=== PATIENT | male | born 1935 | race Caucasian/White ===

== ENCOUNTER 2022-11-25 21:35 | Inpatient (IN) | payer OTHER ==
[2022-11-25 21:45] VITALS: BMI 17.6
[2022-11-25 23:47] LABS: BASO % 0.6 % (0-2.0); EOS % 0.6 % (0-4.5); HEMATOCRIT 26.9 % (35.4-49); HEMOGLOBIN 8.5 GM/dL (11.7-16.9); LYMPH % 6.5 % (8-40); MCHC 31.5 g/dl (32.0-35.9); MEAN CELL VOLUME 98.3 fl (80-96); MEAN PLT VOLUME 8.7 fl (7.5-11.1); MONO % 10.8 % (3.8-10.2); NEUT % 81.5 % (42.8-82.8); PLATELET COUNT 419 10^3/uL (134-434); RBC 2.73 M/mm3 (4.00-5.60); RDW 17.6 % (11.9-15.9); WHITE BLOOD COUNT 10.2 K/mm3 (4.0-10.0)
[2022-11-25 23:50] LABS: EPI CELLS 1 /uL (0-25.1); HYALINE CASTS 0 /uL (0-3.1); URINE APPEARANCE TURBID; URINE BACTERIA 150 /uL (0-1359); URINE BILIRUBIN NEGATIVE (NEGATIVE); URINE COLOR YELLOW; URINE GLUCOSE (UA) NEGATIVE (NEGATIVE); URINE KETONE NEGATIVE (NEGATIVE); URINE LEUK ESTERASE 3+ (NEGATIVE); URINE NITRITE NEGATIVE (NEGATIVE); URINE PROTEIN 2+ (NEGATIVE); URINE RBC 403 /uL (0-23.9); URINE UROBILINOGEN 0.2 mg/dL (0.2-1.0); URINE WBC 5789 /uL (0-25.8)
[2022-11-25 23:59] LABS: INR 1.17 (0.83-1.09); PROTHROMBIN TIME (PATIENT) 13.6 SEC (9.7-13.0)
[2022-11-26] LABS: CHLORIDE 110 mmol/L (98-107); POTASSIUM 4.9 mmol/L (3.5-5.1); SODIUM 138 mmol/L (136-145)
[2022-11-26 00:02] LABS: ACTIVATED PTT 32.1 SECONDS (25.2-36.5)
[2022-11-26 00:03] LABS: ALBUMIN 2.7 g/dl (3.4-5.0); ANION GAP 10 MMOL/L (8-16); BLOOD UREA NITROGEN 75.4 mg/dL (7-18); CALCIUM 7.5 mg/dL (8.5-10.1); CO2 19 mmol/L (21-32); GLUCOSE,RANDOM 97 mg/dL (74-106)
[2022-11-26 00:06] LABS: CREATININE 4.3 mg/dL (0.55-1.3); SGOT/AST 21 U/L (15-37); SGPT/ALT 11 U/L (13-61)
[2022-11-26 00:08] LABS: BILIRUBIN,TOTAL 0.2 mg/dL (0.2-1); TOT PROT 6.7 g/dl (6.4-8.2)
[2022-11-26 00:09] LABS: ALK PHOS 110 U/L (45-117)
[2022-11-26 00:10] LABS: MAGNESIUM 0.8 mg/dL (1.8-2.4)
[2022-11-26] MEDS ORDERED: CEFTRIAXONE 1 GM in DEXTROSE 5%-WATER - 100 ML IVPB ONE (00:13)
[2022-11-26] MEDS ORDERED: LACTATED RINGERS SOLUTION 1000 ML INFUS.BAG IV ONE (00:13)
[2022-11-26] MEDS ORDERED: MAGNESIUM SULF 50% (8.12 MEQ/2 ML-1 GM VIAL) IVPB ONE ×2 (00:13→04:23)
[2022-11-26] MEDS ORDERED: SODIUM CHLORIDE 0.9% 1000 ML INFUS.BAG IV ONE (00:37)
[2022-11-26] MEDS ORDERED: CEFTRIAXONE 1 GM/50 ML BAG ONE (00:39)
[2022-11-26] MEDS ORDERED: ACETAMINOPHEN 325 MG TABLET (FP) PO ONE (00:44)
[2022-11-26] MEDS ORDERED: PHENAZOPYRIDINE HCL 100 MG TABLET (FP) PO ONE (00:45)
[2022-11-26] MEDS ORDERED: MAGNESIUM SULFATE IN WATER 2 GM/50 ML IVPB IVPB ONE (01:07)
[2022-11-26] MEDS ORDERED: PHENAZOPYRIDINE HCL 100 MG TABLET (FP) ONE (01:17)
[2022-11-26] MEDS ORDERED: ACETAMINOPHEN 325 MG TABLET (FP) ONE (01:17)
[2022-11-26] MEDS ORDERED: morphine CARPU-JECT 4 MG/1 ML DISP.SYRIN IVPUSH ONE (02:11)
[2022-11-26] MEDS ORDERED: morphine SULFATE 4 MG/ML VIAL ONE (02:19)
[2022-11-26] MEDS ORDERED: MAGNESIUM 1GM/D5W - 1 GM/100 ML IVPB IVPB ONE (05:09)
[2022-11-26] MEDS ORDERED: ACETAMINOPHEN 325 MG TABLET (FP) PO PRN (06:00)
[2022-11-26] MEDS ORDERED: SODIUM CHLORIDE 1,000 ML IV SCH (06:00)
[2022-11-26 06:43] LABS: BASO % 0.4 % (0-2.0); EOS % 0.2 % (0-4.5); HEMATOCRIT 25.1 % (35.4-49); HEMOGLOBIN 7.9 GM/dL (11.7-16.9); LYMPH % 8.5 % (8-40); MCH 31.4 pg (25.7-33.7); MCHC 31.4 g/dl (32.0-35.9); MEAN CELL VOLUME 100.2 fl (80-96); NEUT % 78.9 % (42.8-82.8); PLATELET COUNT 404 10^3/uL (134-434); RBC 2.51 M/mm3 (4.00-5.60); RDW 17.2 % (11.9-15.9); WHITE BLOOD COUNT 9.6 K/mm3 (4.0-10.0)
[2022-11-26 06:46] LABS: POTASSIUM 4.5 mmol/L (3.5-5.1)
[2022-11-26 06:49] LABS: ALBUMIN 2.2 g/dl (3.4-5.0)
[2022-11-26 06:52] LABS: CREATININE 3.9 mg/dL (0.55-1.3)
[2022-11-26 06:54] LABS: TOT PROT 5.6 g/dl (6.4-8.2)
[2022-11-26 07:00] LABS: BILIRUBIN,TOTAL 0.3 mg/dL (0.2-1)
[2022-11-26] MEDS ORDERED: IRON SUCROSE INJECTION 200 MG in SODIUM CHLORIDE 90 ML IVPB ONE (09:22)
[2022-11-26 09:29] LABS: MAGNESIUM 1.2 mg/dL (1.8-2.4)
[2022-11-26] MEDS: PANTOPRAZOLE 40 MG TABLET PO SCH (10:23)
[2022-11-26] MEDS ORDERED: MAGNESIUM 2GM/50ML STERILE WATER IVPB IVPB ONE ×2 (10:30→14:00)
[2022-11-26] MEDS: SODIUM CHLORIDE 0.45% 1,000 ML IV SCH (14:29)
[2022-11-26] MEDS: POLYETHYLENE GLYCOL (HEALTHYLAX) 3350 17 GM PACKET PO SCH (21:10)
[2022-11-26] MEDS: ATORVASTATIN CA 10 MG TABLET (FP) PO SCH (21:10)
[2022-11-26] MEDS ORDERED: ACETAMINOPHEN 1000 MG/100 ML BAG IVPB ONE (23:07)
[2022-11-26] MEDS: MELATONIN 5 MG TABLETS PO PRN (23:30)
[2022-11-27] MEDS ORDERED: HALOPERIDOL LACTATE 5 MG/ML IM ONE (01:57)
[2022-11-27] MEDS: SODIUM CHLORIDE 0.45% 1,000 ML IV SCH ×2 (04:13→15:22)
[2022-11-27 06:41] LABS: BASO % 0.3 % (0-2.0); HEMATOCRIT 28.2 % (35.4-49); HEMOGLOBIN 8.8 GM/dL (11.7-16.9); LYMPH % 2.1 % (8-40); MCH 30.9 pg (25.7-33.7); MEAN CELL VOLUME 99.6 fl (80-96); MEAN PLT VOLUME 9.3 fl (7.5-11.1); MONO % 9.1 % (3.8-10.2); NEUT % 88.5 % (42.8-82.8); PLATELET COUNT 429 10^3/uL (134-434); RBC 2.83 M/mm3 (4.00-5.60); WHITE BLOOD COUNT 16.5 K/mm3 (4.0-10.0)
[2022-11-27 07:00] LABS: POTASSIUM 4.8 mmol/L (3.5-5.1)
[2022-11-27 07:07] LABS: ALBUMIN 2.5 g/dl (3.4-5.0)
[2022-11-27 07:08] LABS: BLOOD UREA NITROGEN 69.4 mg/dL (7-18)
[2022-11-27 07:09] LABS: CREATININE 4.2 mg/dL (0.55-1.3)
[2022-11-27 07:11] LABS: BILIRUBIN,TOTAL 0.4 mg/dL (0.2-1); TOT PROT 6.4 g/dl (6.4-8.2)
[2022-11-27 07:19] LABS: CALCIUM 8.1 mg/dL (8.5-10.1)
[2022-11-27] MEDS ORDERED: IRON SUCROSE INJECTION 200 MG in SODIUM CHLORIDE 90 ML IVPB ONE (10:00)
[2022-11-27] MEDS: POLYETHYLENE GLYCOL (HEALTHYLAX) 3350 17 GM PACKET PO SCH ×2 (10:17→21:34)
[2022-11-27] MEDS: CEFTRIAXONE 1 GM in DEXTROSE 5%-WATER - 50 ML IVPB SCH (10:26)
[2022-11-27] MEDS: PANTOPRAZOLE 40 MG TABLET PO SCH (10:26)
[2022-11-27] MEDS: METOPROLOL TARTRATE 25 MG TABLET (FP) PO SCH (14:36)
[2022-11-27] MEDS: metoPROLOL SUCCINATE 25 MG TAB.SR.24H (FP) PO SCH (15:22)
[2022-11-27] MEDS: ACETAMINOPHEN 1000 MG/100 ML BAG IVPB PRN ×2 (17:14→23:09)
[2022-11-27] MEDS: MELATONIN 5 MG TABLETS PO PRN (21:34)
[2022-11-27] MEDS: ATORVASTATIN CA 10 MG TABLET (FP) PO SCH (21:34)
[2022-11-27] MEDS: QUEtiapine FUMARATE 25 MG TABLET PO SCH (21:34)
[2022-11-28 08:01] LABS: HEMATOCRIT 27.5 % (35.4-49); HEMOGLOBIN 8.4 GM/dL (11.7-16.9); MCH 30.8 pg (25.7-33.7); MCHC 30.4 g/dl (32.0-35.9); MEAN CELL VOLUME 101.1 fl (80-96); MEAN PLT VOLUME 9.9 fl (7.5-11.1); PLATELET COUNT 414 10^3/uL (134-434); RBC 2.72 M/mm3 (4.00-5.60); RDW 17.1 % (11.9-15.9); WHITE BLOOD COUNT 21.1 K/mm3 (4.0-10.0)
[2022-11-28 08:03] LABS: POTASSIUM 4.7 mmol/L (3.5-5.1)
[2022-11-28 08:09] LABS: ALBUMIN 2.1 g/dl (3.4-5.0); CALCIUM 8.3 mg/dL (8.5-10.1)
[2022-11-28 08:10] LABS: BLOOD UREA NITROGEN 70.1 mg/dL (7-18)
[2022-11-28 08:12] LABS: CREATININE 4.2 mg/dL (0.55-1.3)
[2022-11-28 08:14] LABS: BILIRUBIN,TOTAL 0.2 mg/dL (0.2-1); TOT PROT 5.6 g/dl (6.4-8.2)
[2022-11-28 08:41] LABS: ANISOCYTOSIS 1+; MACROCYTOSIS 1+
[2022-11-28] MEDS ORDERED: AMMONIUM LACTATE 12% LOTION 225 GM BOTTLE TP PRN (08:54)
[2022-11-28] MEDS ORDERED: IRON SUCROSE INJECTION 200 MG in SODIUM CHLORIDE 90 ML IVPB ONE (10:00)
[2022-11-28] MEDS: PANTOPRAZOLE 40 MG TABLET PO SCH (10:30)
[2022-11-28] MEDS: metoPROLOL SUCCINATE 25 MG TAB.SR.24H (FP) PO SCH (10:30)
[2022-11-28] MEDS: CEFTRIAXONE 1 GM in DEXTROSE 5%-WATER - 50 ML IVPB SCH (10:30)
[2022-11-28] MEDS: POLYETHYLENE GLYCOL (HEALTHYLAX) 3350 17 GM PACKET PO SCH ×2 (10:31→21:16)
[2022-11-28] MEDS: SODIUM CHLORIDE 0.45% 1,000 ML IV SCH (19:16)
[2022-11-28] MEDS: QUEtiapine FUMARATE 25 MG TABLET PO SCH (21:01)
[2022-11-28] MEDS: ATORVASTATIN CA 10 MG TABLET (FP) PO SCH (21:01)
[2022-11-29] MEDS ORDERED: ALPRAZolam 0.25 MG TABLET PO ONE (00:56)
[2022-11-29] MEDS: SODIUM CHLORIDE 0.45% 1,000 ML IV SCH ×3 (07:34→22:57)
[2022-11-29 10:02] LABS: HEMATOCRIT 26.7 % (35.4-49); HEMOGLOBIN 8.2 GM/dL (11.7-16.9); MCH 30.7 pg (25.7-33.7); MCHC 30.5 g/dl (32.0-35.9); MEAN CELL VOLUME 100.6 fl (80-96); MEAN PLT VOLUME 9.8 fl (7.5-11.1); PLATELET COUNT 374 10^3/uL (134-434); RBC 2.66 M/mm3 (4.00-5.60); RDW 17.4 % (11.9-15.9); WHITE BLOOD COUNT 24.6 K/mm3 (4.0-10.0)
[2022-11-29 10:24] LABS: POTASSIUM 4.2 mmol/L (3.5-5.1)
[2022-11-29 10:26] LABS: ALBUMIN 1.9 g/dl (3.4-5.0); BLOOD UREA NITROGEN 81.6 mg/dL (7-18); CALCIUM 8.2 mg/dL (8.5-10.1)
[2022-11-29 10:29] LABS: CREATININE 4.5 mg/dL (0.55-1.3)
[2022-11-29 10:31] LABS: BILIRUBIN,TOTAL 0.2 mg/dL (0.2-1); TOT PROT 5.2 g/dl (6.4-8.2)
[2022-11-29] MEDS: PANTOPRAZOLE 40 MG TABLET PO SCH (10:43)
[2022-11-29] MEDS: CEFTRIAXONE 1 GM in DEXTROSE 5%-WATER - 50 ML IVPB SCH (10:43)
[2022-11-29] MEDS: metoPROLOL SUCCINATE 25 MG TAB.SR.24H (FP) PO SCH (10:43)
[2022-11-29 11:05] LABS: ANISOCYTOSIS 2+; MACROCYTOSIS 2+
[2022-11-29] MEDS: POLYETHYLENE GLYCOL (HEALTHYLAX) 3350 17 GM PACKET PO SCH ×2 (11:50→21:37)
[2022-11-29] MEDS: ATORVASTATIN CA 10 MG TABLET (FP) PO SCH (23:27)
[2022-11-29] MEDS: QUEtiapine FUMARATE 25 MG TABLET PO SCH (23:27)
[2022-11-30] MEDS: PIPERACILLIN/TAZOB 2.25 GM 2.25 GM in DEXTROSE 5%-WATER - 50 ML IVPB SCH ×3 (01:16→18:38)
[2022-11-30 03:40] LABS: EPI CELLS 3 /uL (0-25.1); HYALINE CASTS 1 /uL (0-3.1); PH,URINE 5.5 (5.0-8.0); URINE APPEARANCE CLOUDY; URINE BACTERIA 16 /uL (0-1359); URINE BILIRUBIN NEGATIVE (NEGATIVE); URINE COLOR DK YELLOW; URINE GLUCOSE (UA) NEGATIVE (NEGATIVE); URINE KETONE NEGATIVE (NEGATIVE); URINE LEUK ESTERASE 2+ (NEGATIVE); URINE NITRITE NEGATIVE (NEGATIVE); URINE PROTEIN 3+ (NEGATIVE); URINE RBC 5181 /uL (0-23.9); URINE WBC 663 /uL (0-25.8)
[2022-11-30 07:25] LABS: POTASSIUM 3.7 mmol/L (3.5-5.1)
[2022-11-30 07:30] LABS: CALCIUM 7.4 mg/dL (8.5-10.1)
[2022-11-30 07:31] LABS: BLOOD UREA NITROGEN 78.7 mg/dL (7-18)
[2022-11-30 07:34] LABS: CREATININE 4.5 mg/dL (0.55-1.3)
[2022-11-30 07:36] LABS: BILIRUBIN,TOTAL 0.3 mg/dL (0.2-1); TOT PROT 5.5 g/dl (6.4-8.2)
[2022-11-30 07:57] LABS: HEMATOCRIT 26.3 % (35.4-49); HEMOGLOBIN 8.3 GM/dL (11.7-16.9); MCH 30.5 pg (25.7-33.7); MCHC 31.3 g/dl (32.0-35.9); MEAN CELL VOLUME 97.5 fl (80-96); MEAN PLT VOLUME 9.1 fl (7.5-11.1); PLATELET COUNT 398 10^3/uL (134-434); RDW 17.5 % (11.9-15.9)
[2022-11-30 08:58] LABS: ANISOCYTOSIS 1+; MACROCYTOSIS 0; OVALOCYTE 1+; TEAR DROP CELLS 1+
[2022-11-30] MEDS: PANTOPRAZOLE 40 MG TABLET PO SCH (10:47)
[2022-11-30] MEDS: POLYETHYLENE GLYCOL (HEALTHYLAX) 3350 17 GM PACKET PO SCH ×2 (10:47→21:50)
[2022-11-30] MEDS: metoPROLOL SUCCINATE 25 MG TAB.SR.24H (FP) PO SCH (10:47)
[2022-11-30] MEDS: SODIUM CHLORIDE 0.45% 1,000 ML IV SCH (15:47)
[2022-11-30] MEDS: QUEtiapine FUMARATE 25 MG TABLET PO SCH (21:50)
[2022-11-30] MEDS: ATORVASTATIN CA 10 MG TABLET (FP) PO SCH (21:50)
[2022-12-01] MEDS: PIPERACILLIN/TAZOB 2.25 GM 2.25 GM in DEXTROSE 5%-WATER - 50 ML IVPB SCH ×3 (01:44→17:12)
[2022-12-01 08:02] LABS: BASO % 0.2 % (0-2.0); EOS % 0.3 % (0-4.5); HEMOGLOBIN 7.7 GM/dL (11.7-16.9); LYMPH % 1.7 % (8-40); MCH 30.8 pg (25.7-33.7); MEAN CELL VOLUME 99.3 fl (80-96); MEAN PLT VOLUME 9.6 fl (7.5-11.1); NEUT % 89.8 % (42.8-82.8); PLATELET COUNT 386 10^3/uL (134-434); RBC 2.52 M/mm3 (4.00-5.60); RDW 17.6 % (11.9-15.9); WHITE BLOOD COUNT 19.3 K/mm3 (4.0-10.0)
[2022-12-01 08:18] LABS: POTASSIUM 3.8 mmol/L (3.5-5.1)
[2022-12-01 08:22] LABS: ALBUMIN 1.9 g/dl (3.4-5.0); BLOOD UREA NITROGEN 83.3 mg/dL (7-18)
[2022-12-01 08:25] LABS: CREATININE 4.8 mg/dL (0.55-1.3)
[2022-12-01 08:26] LABS: BILIRUBIN,TOTAL 0.4 mg/dL (0.2-1)
[2022-12-01 08:27] LABS: TOT PROT 5.2 g/dl (6.4-8.2)
[2022-12-01] MEDS: PANTOPRAZOLE 40 MG TABLET PO SCH (09:39)
[2022-12-01] MEDS: metoPROLOL SUCCINATE 25 MG TAB.SR.24H (FP) PO SCH (09:39)
[2022-12-01] MEDS: POLYETHYLENE GLYCOL (HEALTHYLAX) 3350 17 GM PACKET PO SCH ×2 (09:39→21:45)
[2022-12-01] MEDS ORDERED: SODIUM BICARBONATE 8.4% 50 MEQ/50 ML VIAL IVPUSH ONE (11:34)
[2022-12-01] MEDS ORDERED: POTASSIUM CHLORIDE ORAL LIQUID 20 MEQ/15 ML PO ONE (11:35)
[2022-12-01] MEDS ORDERED: DEXTROSE 5%-WATER - 950 ML with SODIUM BICARBONATE 8.4% - 150 MEQ IV SCH (11:45)
[2022-12-01] MEDS: SODIUM BICARBONATE 8.4% - 150 MEQ in DEXTROSE 5%-WATER - 950 ML IV SCH (15:41)
[2022-12-01] MEDS: ATORVASTATIN CA 10 MG TABLET (FP) PO SCH ×2 (21:46→21:50)
[2022-12-01] MEDS: QUEtiapine FUMARATE 25 MG TABLET PO SCH ×2 (21:46→21:51)
[2022-12-02] MEDS: PIPERACILLIN/TAZOB 2.25 GM 2.25 GM in DEXTROSE 5%-WATER - 50 ML IVPB SCH ×3 (02:50→18:06)
[2022-12-02] MEDS: SODIUM BICARBONATE 8.4% - 150 MEQ in DEXTROSE 5%-WATER - 950 ML IV SCH ×2 (03:12→18:05)
[2022-12-02 07:55] LABS: HEMATOCRIT 27.4 % (35.4-49); HEMOGLOBIN 8.6 GM/dL (11.7-16.9); MCHC 31.4 g/dl (32.0-35.9); MEAN CELL VOLUME 98.7 fl (80-96); MEAN PLT VOLUME 9.6 fl (7.5-11.1); PLATELET COUNT 422 10^3/uL (134-434); RBC 2.78 M/mm3 (4.00-5.60); RDW 17.9 % (11.9-15.9); WHITE BLOOD COUNT 18.7 K/mm3 (4.0-10.0)
[2022-12-02 08:17] LABS: CALCIUM 8.3 mg/dL (8.5-10.1)
[2022-12-02 08:18] LABS: BLOOD UREA NITROGEN 81.6 mg/dL (7-18)
[2022-12-02 08:20] LABS: CREATININE 4.9 mg/dL (0.55-1.3)
[2022-12-02 08:22] LABS: TOT PROT 5.8 g/dl (6.4-8.2)
[2022-12-02 08:26] LABS: BILIRUBIN,TOTAL 0.4 mg/dL (0.2-1)
[2022-12-02 08:37] LABS: ANISOCYTOSIS 0; HELMET CELLS 0; HOWELL-JOLLY BODIES 0; MACROCYTOSIS 0; OVALOCYTE 0; ROULEAU 0; SICKELED CELLS 0; TARGET CELLS 0; TEAR DROP CELLS 0; TOXIC GRANULATION 0
[2022-12-02] MEDS: PANTOPRAZOLE 40 MG TABLET PO SCH (09:48)
[2022-12-02] MEDS: metoPROLOL SUCCINATE 25 MG TAB.SR.24H (FP) PO SCH (09:48)
[2022-12-02] MEDS: POLYETHYLENE GLYCOL (HEALTHYLAX) 3350 17 GM PACKET PO SCH ×3 (09:49→22:02)
[2022-12-02] MEDS: KCL 10 MEQ IVPB 10 MEQ/100 ML INFUS.BAG IVPB SCH ×4 (09:55→19:42)
[2022-12-02] MEDS ORDERED: POTASSIUM CHLORIDE ORAL LIQUID 20 MEQ/15 ML PO ONE ×2 (15:06→16:09)
[2022-12-02] MEDS ORDERED: KCL 10 MEQ IVPB 10 MEQ/100 ML INFUS.BAG IVPB SCH (15:15)
[2022-12-02] MEDS ORDERED: AMMONIUM LACTATE 12% LOTION 225 GM BOTTLE TP PRN (16:09)
[2022-12-02] MEDS ORDERED: MELATONIN 5 MG TABLETS PO PRN (16:09)
[2022-12-02] MEDS ORDERED: LACTATED RINGERS SOLUTION 1,000 ML IV SCH (16:15)
[2022-12-02] MEDS ORDERED: SODIUM BICARBONATE 8.4% - 75 MEQ in DEXTROSE 5%-WATER - 950 ML IV SCH (17:00)
[2022-12-02] MEDS: SODIUM BICARBONATE 8.4% - 75 MEQ in DEXTROSE 5%-WATER - 950 ML IV SCH (18:05)
[2022-12-02] MEDS: POTASSIUM CHLORIDE ORAL LIQUID 20 MEQ/15 ML PO ONE ×2 (18:37→18:44)
[2022-12-02] MEDS: QUEtiapine FUMARATE 25 MG TABLET PO SCH (22:02)
[2022-12-02] MEDS: ATORVASTATIN CA 10 MG TABLET (FP) PO SCH (22:02)
[2022-12-03] MEDS: PIPERACILLIN/TAZOB 2.25 GM 2.25 GM in DEXTROSE 5%-WATER - 50 ML IVPB SCH ×3 (01:52→18:47)
[2022-12-03 09:32] LABS: BASO % 0.1 % (0-2.0); EOS % 1.2 % (0-4.5); HEMATOCRIT 24.4 % (35.4-49); HEMOGLOBIN 7.7 GM/dL (11.7-16.9); LYMPH % 3.4 % (8-40); MCH 31.2 pg (25.7-33.7); MCHC 31.6 g/dl (32.0-35.9); MEAN CELL VOLUME 98.7 fl (80-96); MEAN PLT VOLUME 9.6 fl (7.5-11.1); MONO % 9.6 % (3.8-10.2); NEUT % 85.7 % (42.8-82.8); PLATELET COUNT 386 10^3/uL (134-434); RBC 2.47 M/mm3 (4.00-5.60); RDW 17.5 % (11.9-15.9); WHITE BLOOD COUNT 15.7 K/mm3 (4.0-10.0)
[2022-12-03 09:47] LABS: ALBUMIN 1.7 g/dl (3.4-5.0); BLOOD UREA NITROGEN 77.4 mg/dL (7-18); MAGNESIUM 1.6 mg/dL (1.8-2.4)
[2022-12-03 09:48] LABS: CREATININE 4.5 mg/dL (0.55-1.3)
[2022-12-03 09:50] LABS: BILIRUBIN,TOTAL 0.2 mg/dL (0.2-1)
[2022-12-03] MEDS ORDERED: POTASSIUM CHLORIDE ORAL LIQUID 20 MEQ/15 ML PO ONE (10:35)
[2022-12-03] MEDS: POLYETHYLENE GLYCOL (HEALTHYLAX) 3350 17 GM PACKET PO SCH ×2 (11:18→22:14)
[2022-12-03] MEDS: SODIUM BICARBONATE 8.4% - 75 MEQ in DEXTROSE 5%-WATER - 950 ML IV SCH (11:47)
[2022-12-03] MEDS: PANTOPRAZOLE 40 MG TABLET PO SCH ×2 (11:48→12:01)
[2022-12-03] MEDS: metoPROLOL SUCCINATE 25 MG TAB.SR.24H (FP) PO SCH ×2 (11:48→12:03)
[2022-12-03] MEDS ORDERED: DEXTROSE 50%-WATER - 25 GM/50 ML VIAL IVPUSH PRN (13:10)
[2022-12-03] MEDS ORDERED: MAGNESIUM SULF 50% (8.12 MEQ/2 ML-1 GM VIAL) IVPB ONE (13:10)
[2022-12-03] MEDS: POTASSIUM CHLORIDE 10 MEQ in SODIUM CHLORIDE 0.45% 1,000 ML IVPB SCH (14:01)
[2022-12-03] MEDS: KCL 10 MEQ IVPB 10 MEQ/100 ML INFUS.BAG IVPB SCH ×4 (14:20→22:21)
[2022-12-03] MEDS ORDERED: FENTANYL CITRATE/PF 50 MCG/ML VIAL IVPUSH ONE (16:00)
[2022-12-03] MEDS ORDERED: SODIUM CHLORIDE 500 ML IV ONE (16:00)
[2022-12-03] MEDS ORDERED: FENTANYL CITRATE/PF 50 MCG/ML VIAL ONE ×2 (16:05→16:17)
[2022-12-03] MEDS: ATORVASTATIN CA 10 MG TABLET (FP) PO SCH (22:13)
[2022-12-03] MEDS: QUEtiapine FUMARATE 25 MG TABLET PO SCH (22:14)
[2022-12-04] MEDS: PIPERACILLIN/TAZOB 2.25 GM 2.25 GM in DEXTROSE 5%-WATER - 50 ML IVPB SCH ×3 (02:03→17:41)
[2022-12-04] MEDS: POTASSIUM CHLORIDE 10 MEQ in SODIUM CHLORIDE 0.45% 1,000 ML IVPB SCH ×2 (02:53→17:40)
[2022-12-04 07:54] LABS: BASO % 0.3 % (0-2.0); EOS % 0.5 % (0-4.5); HEMATOCRIT 26.4 % (35.4-49); HEMOGLOBIN 8.4 GM/dL (11.7-16.9); LYMPH % 4.1 % (8-40); MCH 31.6 pg (25.7-33.7); MCHC 31.8 g/dl (32.0-35.9); MEAN CELL VOLUME 99.3 fl (80-96); MEAN PLT VOLUME 10.1 fl (7.5-11.1); MONO % 7.5 % (3.8-10.2); NEUT % 87.6 % (42.8-82.8); PLATELET COUNT 328 10^3/uL (134-434); RBC 2.66 M/mm3 (4.00-5.60); RDW 18.2 % (11.9-15.9); WHITE BLOOD COUNT 14.8 K/mm3 (4.0-10.0)
[2022-12-04 08:10] LABS: POTASSIUM 3.5 mmol/L (3.5-5.1)
[2022-12-04 08:14] LABS: ALBUMIN 1.8 g/dl (3.4-5.0); CALCIUM 7.9 mg/dL (8.5-10.1)
[2022-12-04 08:15] LABS: BLOOD UREA NITROGEN 74.4 mg/dL (7-18)
[2022-12-04 08:17] LABS: CREATININE 4.2 mg/dL (0.55-1.3)
[2022-12-04 08:18] LABS: TOT PROT 5.4 g/dl (6.4-8.2)
[2022-12-04 08:19] LABS: BILIRUBIN,TOTAL 0.4 mg/dL (0.2-1)
[2022-12-04] MEDS: metoPROLOL SUCCINATE 25 MG TAB.SR.24H (FP) PO SCH (09:36)
[2022-12-04] MEDS: PANTOPRAZOLE 40 MG TABLET PO SCH (12:35)
[2022-12-04] MEDS: POLYETHYLENE GLYCOL (HEALTHYLAX) 3350 17 GM PACKET PO SCH ×2 (12:35→22:38)
[2022-12-04] MEDS: KCL 10 MEQ IVPB 10 MEQ/100 ML INFUS.BAG IVPB SCH (14:29)
[2022-12-04] MEDS: QUEtiapine FUMARATE 25 MG TABLET PO SCH (22:38)
[2022-12-04] MEDS: ATORVASTATIN CA 10 MG TABLET (FP) PO SCH (22:38)
[2022-12-05] MEDS: PIPERACILLIN/TAZOB 2.25 GM 2.25 GM in DEXTROSE 5%-WATER - 50 ML IVPB SCH ×3 (01:04→17:38)
[2022-12-05] MEDS: POTASSIUM CHLORIDE 10 MEQ in SODIUM CHLORIDE 0.45% 1,000 ML IVPB SCH ×2 (05:01→17:38)
[2022-12-05] MEDS: POLYETHYLENE GLYCOL (HEALTHYLAX) 3350 17 GM PACKET PO SCH ×2 (09:01→21:37)
[2022-12-05] MEDS: metoPROLOL SUCCINATE 25 MG TAB.SR.24H (FP) PO SCH (09:01)
[2022-12-05] MEDS: PANTOPRAZOLE 40 MG TABLET PO SCH (09:01)
[2022-12-05] MEDS: ATORVASTATIN CA 10 MG TABLET (FP) PO SCH (21:37)
[2022-12-05] MEDS: QUEtiapine FUMARATE 25 MG TABLET PO SCH (21:37)
[2022-12-06] MEDS: PIPERACILLIN/TAZOB 2.25 GM 2.25 GM in DEXTROSE 5%-WATER - 50 ML IVPB SCH ×5 (01:45→21:58)
[2022-12-06] MEDS: POTASSIUM CHLORIDE 10 MEQ in SODIUM CHLORIDE 0.45% 1,000 ML IVPB SCH ×2 (07:23→20:50)
[2022-12-06 09:32] LABS: BASO % 0.1 % (0-2.0); EOS % 0.7 % (0-4.5); HEMATOCRIT 20.2 % (35.4-49); LYMPH % 5.5 % (8-40); MCH 31.6 pg (25.7-33.7); MCHC 31.9 g/dl (32.0-35.9); MEAN CELL VOLUME 99.2 fl (80-96); MEAN PLT VOLUME 9.7 fl (7.5-11.1); MONO % 8.8 % (3.8-10.2); NEUT % 84.9 % (42.8-82.8); PLATELET COUNT 344 10^3/uL (134-434); RBC 2.04 M/mm3 (4.00-5.60); RDW 17.9 % (11.9-15.9); WHITE BLOOD COUNT 9.5 K/mm3 (4.0-10.0)
[2022-12-06 09:37] LABS: HEMOGLOBIN 6.5 GM/dL (11.7-16.9)
[2022-12-06 09:53] LABS: CALCIUM 8.1 mg/dL (8.5-10.1)
[2022-12-06 09:54] LABS: ALBUMIN 1.7 g/dl (3.4-5.0); BLOOD UREA NITROGEN 64.8 mg/dL (7-18); MAGNESIUM 1.7 mg/dL (1.8-2.4)
[2022-12-06 09:56] LABS: CREATININE 3.7 mg/dL (0.55-1.3)
[2022-12-06 09:58] LABS: BILIRUBIN,TOTAL 0.6 mg/dL (0.2-1)
[2022-12-06] MEDS: metoPROLOL SUCCINATE 25 MG TAB.SR.24H (FP) PO SCH (10:18)
[2022-12-06] MEDS: POLYETHYLENE GLYCOL (HEALTHYLAX) 3350 17 GM PACKET PO SCH ×3 (10:19→21:56)
[2022-12-06] MEDS: PANTOPRAZOLE 40 MG TABLET PO SCH (10:19)
[2022-12-06] MEDS: KCL 10 MEQ IVPB 10 MEQ/100 ML INFUS.BAG IVPB SCH ×3 (14:24→19:11)
[2022-12-06] MEDS: POTASSIUM CHLORIDE ORAL LIQUID 20 MEQ/15 ML PO ONE ×2 (14:24→14:30)
[2022-12-06] MEDS ORDERED: MAGNESIUM 2GM/50ML STERILE WATER IVPB IVPB ONE (14:30)
[2022-12-06] MEDS: QUEtiapine FUMARATE 25 MG TABLET PO SCH (22:03)
[2022-12-06] MEDS: ATORVASTATIN CA 10 MG TABLET (FP) PO SCH (22:03)
[2022-12-07] MEDS: POTASSIUM CHLORIDE 10 MEQ in SODIUM CHLORIDE 0.45% 1,000 ML IVPB SCH ×3 (01:01→21:12)
[2022-12-07] MEDS: PIPERACILLIN/TAZOB 2.25 GM 2.25 GM in DEXTROSE 5%-WATER - 50 ML IVPB SCH ×3 (01:03→17:37)
[2022-12-07] MEDS: POLYETHYLENE GLYCOL (HEALTHYLAX) 3350 17 GM PACKET PO SCH ×2 (09:07→22:10)
[2022-12-07 09:22] LABS: HEMATOCRIT 29.3 % (35.4-49); HEMOGLOBIN 9.7 GM/dL (11.7-16.9); MCH 32.4 pg (25.7-33.7); MCHC 33.2 g/dl (32.0-35.9); MEAN CELL VOLUME 97.5 fl (80-96); MEAN PLT VOLUME 9.5 fl (7.5-11.1); PLATELET COUNT 331 10^3/uL (134-434); RDW 16.9 % (11.9-15.9); WHITE BLOOD COUNT 11.3 K/mm3 (4.0-10.0)
[2022-12-07 09:43] LABS: POTASSIUM 3.1 mmol/L (3.5-5.1)
[2022-12-07 09:45] LABS: ALBUMIN 1.9 g/dl (3.4-5.0); BLOOD UREA NITROGEN 60.8 mg/dL (7-18); CALCIUM 8.1 mg/dL (8.5-10.1)
[2022-12-07 09:48] LABS: CREATININE 3.4 mg/dL (0.55-1.3)
[2022-12-07 09:51] LABS: BILIRUBIN,TOTAL 1.2 mg/dL (0.2-1); TOT PROT 5.6 g/dl (6.4-8.2)
[2022-12-07] MEDS: PANTOPRAZOLE 40 MG TABLET PO SCH (09:57)
[2022-12-07] MEDS: metoPROLOL SUCCINATE 25 MG TAB.SR.24H (FP) PO SCH (09:57)
[2022-12-07] MEDS ORDERED: MAGNESIUM OXIDE 400 MG TABLET (FP) PO ONE (10:30)
[2022-12-07] MEDS ORDERED: POTASSIUM CHLORIDE ORAL LIQUID 20 MEQ/15 ML PO ONE (10:30)
[2022-12-07 10:40] LABS: ANISOCYTOSIS 1+; MACROCYTOSIS 1+
[2022-12-07] MEDS: KCL 10 MEQ IVPB 10 MEQ/100 ML INFUS.BAG IVPB SCH ×3 (10:49→13:15)
[2022-12-07] MEDS: QUEtiapine FUMARATE 25 MG TABLET PO SCH (22:11)
[2022-12-07] MEDS: ATORVASTATIN CA 10 MG TABLET (FP) PO SCH (22:11)
[2022-12-08] MEDS: PIPERACILLIN/TAZOB 2.25 GM 2.25 GM in DEXTROSE 5%-WATER - 50 ML IVPB SCH ×2 (01:13→10:35)
[2022-12-08 08:43] LABS: BASO % 0.2 % (0-2.0); EOS % 1.1 % (0-4.5); HEMOGLOBIN 9.3 GM/dL (11.7-16.9); LYMPH % 3.7 % (8-40); MCHC 33.4 g/dl (32.0-35.9); MEAN CELL VOLUME 95.9 fl (80-96); MEAN PLT VOLUME 9.1 fl (7.5-11.1); MONO % 8.5 % (3.8-10.2); NEUT % 86.5 % (42.8-82.8); PLATELET COUNT 306 10^3/uL (134-434); RBC 2.92 M/mm3 (4.00-5.60); WHITE BLOOD COUNT 10.8 K/mm3 (4.0-10.0)
[2022-12-08 09:07] LABS: POTASSIUM 3.7 mmol/L (3.5-5.1)
[2022-12-08 09:20] LABS: ALBUMIN 1.8 g/dl (3.4-5.0); BLOOD UREA NITROGEN 53.4 mg/dL (7-18); MAGNESIUM 1.5 mg/dL (1.8-2.4)
[2022-12-08 09:28] LABS: CREATININE 2.9 mg/dL (0.55-1.3)
[2022-12-08 09:29] LABS: BILIRUBIN,TOTAL 0.4 mg/dL (0.2-1); TOT PROT 5.2 g/dl (6.4-8.2)
[2022-12-08] MEDS: metoPROLOL SUCCINATE 25 MG TAB.SR.24H (FP) PO SCH ×2 (10:36→10:51)
[2022-12-08] MEDS: PANTOPRAZOLE 40 MG TABLET PO SCH (10:36)
[2022-12-08] MEDS: POLYETHYLENE GLYCOL (HEALTHYLAX) 3350 17 GM PACKET PO SCH ×2 (10:37→21:50)
[2022-12-08] MEDS ORDERED: MAGNESIUM 2GM/50ML STERILE WATER IVPB IVPB ONE (11:00)
[2022-12-08] MEDS: POTASSIUM CHLORIDE 10 MEQ in SODIUM CHLORIDE 0.45% 1,000 ML IVPB SCH (11:01)
[2022-12-08] MEDS: AMOX TR/POT CLAV 250MG/125MG TABLETS PO SCH (16:31)
[2022-12-08] MEDS: QUEtiapine FUMARATE 25 MG TABLET PO SCH (21:46)
[2022-12-08] MEDS: ATORVASTATIN CA 10 MG TABLET (FP) PO SCH (21:46)
[2022-12-09] MEDS: POTASSIUM CHLORIDE 10 MEQ in SODIUM CHLORIDE 0.45% 1,000 ML IVPB SCH (01:45)
[2022-12-09 09:48] LABS: BASO % 0.3 % (0-2.0); EOS % 1.2 % (0-4.5); HEMATOCRIT 28.6 % (35.4-49); HEMOGLOBIN 9.1 GM/dL (11.7-16.9); LYMPH % 6.3 % (8-40); MCH 31.2 pg (25.7-33.7); MCHC 31.8 g/dl (32.0-35.9); MEAN CELL VOLUME 98.2 fl (80-96); MEAN PLT VOLUME 9.3 fl (7.5-11.1); MONO % 10.2 % (3.8-10.2); PLATELET COUNT 322 10^3/uL (134-434); RBC 2.91 M/mm3 (4.00-5.60); RDW 17.5 % (11.9-15.9); WHITE BLOOD COUNT 9.7 K/mm3 (4.0-10.0)
[2022-12-09 10:14] LABS: POTASSIUM 3.4 mmol/L (3.5-5.1)
[2022-12-09 10:17] LABS: CALCIUM 7.9 mg/dL (8.5-10.1)
[2022-12-09 10:18] LABS: ALBUMIN 1.8 g/dl (3.4-5.0); BLOOD UREA NITROGEN 45.9 mg/dL (7-18)
[2022-12-09 10:21] LABS: CREATININE 2.5 mg/dL (0.55-1.3)
[2022-12-09 10:23] LABS: BILIRUBIN,TOTAL 0.2 mg/dL (0.2-1); TOT PROT 5.1 g/dl (6.4-8.2)
[2022-12-09] MEDS: PANTOPRAZOLE 40 MG TABLET PO SCH (11:15)
[2022-12-09] MEDS: metoPROLOL SUCCINATE 25 MG TAB.SR.24H (FP) PO SCH (11:15)
[2022-12-09] MEDS: POLYETHYLENE GLYCOL (HEALTHYLAX) 3350 17 GM PACKET PO SCH ×2 (11:15→21:19)
[2022-12-09] MEDS: AMOX TR/POT CLAV 250MG/125MG TABLETS PO SCH ×2 (13:00→17:23)
[2022-12-09] MEDS ORDERED: POTASSIUM CHLORIDE ORAL LIQUID 20 MEQ/15 ML PO ONE (13:11)
[2022-12-09] MEDS ORDERED: MAGNESIUM OXIDE 400 MG TABLET (FP) PO ONE (15:07)
[2022-12-09] MEDS: KCL 10 MEQ IVPB 10 MEQ/100 ML INFUS.BAG IVPB SCH ×2 (15:09→15:36)
[2022-12-09] MEDS: QUEtiapine FUMARATE 25 MG TABLET PO SCH (21:17)
[2022-12-09] MEDS: ATORVASTATIN CA 10 MG TABLET (FP) PO SCH (21:17)
[2022-12-10 00:49] VITALS: RESP 16
[2022-12-10] MEDS: POLYETHYLENE GLYCOL (HEALTHYLAX) 3350 17 GM PACKET PO SCH (10:51)
[2022-12-10] MEDS: PANTOPRAZOLE 40 MG TABLET PO SCH (10:51)
[2022-12-10] MEDS: AMOX TR/POT CLAV 250MG/125MG TABLETS PO SCH ×2 (11:31→17:35)
[2022-12-10] MEDS: metoPROLOL SUCCINATE 25 MG TAB.SR.24H (FP) PO SCH (11:32)
[2022-12-10 16:00] LABS: BASO % 0.3 % (0-2.0); EOS % 0.8 % (0-4.5); HEMATOCRIT 29.2 % (35.4-49); HEMOGLOBIN 9.4 GM/dL (11.7-16.9); LYMPH % 6.8 % (8-40); MCH 30.9 pg (25.7-33.7); MCHC 32.1 g/dl (32.0-35.9); MEAN CELL VOLUME 96.3 fl (80-96); MONO % 9.5 % (3.8-10.2); NEUT % 82.6 % (42.8-82.8); PLATELET COUNT 351 10^3/uL (134-434); RBC 3.03 M/mm3 (4.00-5.60); RDW 17.9 % (11.9-15.9)
[2022-12-10 16:28] LABS: CALCIUM 7.8 mg/dL (8.5-10.1)
[2022-12-10 16:29] LABS: BLOOD UREA NITROGEN 35.8 mg/dL (7-18)
[2022-12-10 16:32] LABS: CREATININE 1.9 mg/dL (0.55-1.3)
[2022-12-10 16:34] LABS: BILIRUBIN,TOTAL 0.2 mg/dL (0.2-1); TOT PROT 5.5 g/dl (6.4-8.2)
[2022-12-10 20:07] VITALS: BP 131/69; PULSE 73; TEMP 98.5
== END 2022-12-10 20:00 | DRG 682 ==
LOC: JER 21:35 → JERBED 23:41 → J4S 11-26 06:52
PROVIDERS: ADMIT Internal Medicine; ATTEND Family Medicine
PROC: 0HBRXZZ Excision of Toe Nail, External Approach (ICD-10-PCS; principal; 2022-11-27)
PROC: 0HBRXZZ Excision of Toe Nail, External Approach (ICD-10-PCS; 2022-11-27)
PROC: 0HBRXZZ Excision of Toe Nail, External Approach (ICD-10-PCS; 2022-11-27)
PROC: 0HBRXZZ Excision of Toe Nail, External Approach (ICD-10-PCS; 2022-11-27)
PROC: 0HBRXZZ Excision of Toe Nail, External Approach (ICD-10-PCS; 2022-11-27)
PROC: 0HBRXZZ Excision of Toe Nail, External Approach (ICD-10-PCS; 2022-11-27)
PROC: 0HBRXZZ Excision of Toe Nail, External Approach (ICD-10-PCS; 2022-11-27)
PROC: 0HBRXZZ Excision of Toe Nail, External Approach (ICD-10-PCS; 2022-11-27)
PROC: 0HBRXZZ Excision of Toe Nail, External Approach (ICD-10-PCS; 2022-11-27)
PROC: 0HBRXZZ Excision of Toe Nail, External Approach (ICD-10-PCS; 2022-11-27)
PROC: 0TJB8ZZ Inspection of Bladder, Via Natural or Artificial Opening Endoscopic (ICD-10-PCS; 2022-12-02)
PROC: 0T9030Z Drainage of Right Kidney with Drainage Device, Percutaneous Approach (ICD-10-PCS; 2022-12-03)
PROC: 0T9430Z Drainage of Left Kidney Pelvis with Drainage Device, Percutaneous Approach (ICD-10-PCS; 2022-12-03)
PROC: BT01ZZZ Plain Radiography of Right Kidney (ICD-10-PCS; 2022-12-03)
PROC: 0T788ZZ Dilation of Bilateral Ureters, Via Natural or Artificial Opening Endoscopic (ICD-10-PCS; 2022-12-03)
DX: N17.9 Acute kidney failure, unspecified (principal); E43 Unspecified severe protein-calorie malnutrition; G93.41 Metabolic encephalopathy; J18.9 Pneumonia, unspecified organism; R64 Cachexia; Z68.1 Body mass index [BMI] 19.9 or less, adult; E87.29 Other acidosis; N13.6 Pyonephrosis; D72.829 Elevated white blood cell count, unspecified; E83.42 Hypomagnesemia; D63.1 Anemia in chronic kidney disease; E86.0 Dehydration; D51.9 Vitamin B12 deficiency anemia, unspecified; N40.1 Benign prostatic hyperplasia with lower urinary tract symptoms; R33.8 Other retention of urine; B35.1 Tinea unguium; E78.5 Hyperlipidemia, unspecified; I12.9 Hypertensive chronic kidney disease with stage 1 through stage 4 chronic kidney disease, or unspecified chronic kidney disease; E11.22 Type 2 diabetes mellitus with diabetic chronic kidney disease; N18.9 Chronic kidney disease, unspecified; R62.7 Adult failure to thrive; R91.1 Solitary pulmonary nodule; L85.3 Xerosis cutis; M79.5 Residual foreign body in soft tissue; E87.8 Other disorders of electrolyte and fluid balance, not elsewhere classified; R29.91 Unspecified symptoms and signs involving the musculoskeletal system; R14.0 Abdominal distension (gaseous); E87.6 Hypokalemia; N32.89 Other specified disorders of bladder
CPT/HCPCS: 36415; 36430; 36511; 50432; 70450-TC; 71045-TC-FY; 73630-TC-RT-FY; 74018-TC-FY; 74176-TC; 76775-TC; 76856-TC; 80048; 80053; 81003; 82272; 82436; 82550; 82553; 82570; 82607; 82728; 82746; 82747; 82962; 83540; 83550; 83735; 84133; 84153; 84300; 84443; 84484; 85014; 85025; 85610; 85730; 86850; 86900; 86901; 86922; 87040; 87070; 87075; 87086; 87205; 87899; 88108; 93005; 93010; 94760; 97161-GP; 99291; J1756; P9016; P9038; P9058; Q9967